=== PATIENT | male | born 1960 | race Two or more races ===

== ENCOUNTER → 2016-03-25 | Outpatient (CLI) | payer OTHER ==
--- NOTE | 2016-03-26 08:33 | DX ---
Bilateral hands, 3 views each. HISTORY: Pain. Polyarthralgia. Findings: Normal mineralization and alignment. No evidence for acute fracture or dislocation. Mild j oint narrowing and periarticular spurring at the third metacarpophalangeal joints bilaterally, more p redominant on the right. Small subcortical cyst is seen in the second metacarpal head on the right. M ild subarticular sclerosis is seen at the first metacarpophalangeal joint of the left hand. No eviden ce for periarticular erosion. No evidence for soft tissue calcification. 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 Mild degenerative change left first metacarpophalangeal joint.
== END ==
LOC: CIMAGING 14:53
PROVIDERS: ATTEND Internal Medicine
DX: M79.641 Pain in right hand (principal); M79.642 Pain in left hand
CPT/HCPCS: 73130-PO